=== PATIENT | female | born 1975 | race Caucasian/White ===

== ENCOUNTER 2016-12-19 09:31 | Emergency (ER) | payer BC, OTHER ==
[~2016-12-19] VITALS: Wt 65.9 kg
[2016-12-19] MEDS ORDERED: ONDANSETRON (ODT) 4 MG TAB ODT STA (10:22)
[2016-12-19] MEDS ORDERED: LORAZEPAM 1 MG TAB PO ONE (10:30)
[2016-12-19] MEDS ORDERED: LIDOCAINE/MYLANTA 40 ML BTL PO ONE (10:30)
[2016-12-19] MEDS ORDERED: OMEP20CA16 PO (11:15)
--- NOTE | 2016-12-19 12:04 | ERD ---
ER Documentation Chief Complaint Chief Complaint paulino, abd pain, n/v HPI Patient is a 41-year-old female with past medical history of gastritis presenting to the emergency department with complaints of midepigastric pain which began yesterday. Are intermittent. She additionally reports yesterday she received a call from a family member letting her know that her uncle has pancreatic cancer, which made her very anxious, causing her to have a large episode of nonbilious and nonbloody vomiting followed by dizziness and feeling of syncope. The patient did not fully syncopized. Today she has continued to feel intermittent dizziness. She also reports feeling anxious about her uncle. Symptoms are moderate in severity. She denies fevers, chills, diarrhea, or other symptoms at this time. ROS All systems reviewed and are negative except as per history of present illness. Medications Home Meds Active Scripts Omeprazole* (Omeprazole*) 20 Mg Capsule., 20 MG PO DAILY, #20 Prov:ESTRELLITA PACK PA-C 12/19/16 Allergies Allergies: Coded Allergies: No Known Drug Allergy (Verified Allergy, Unknown, 01/20/09) PMhx/Soc Medical and Surgical Hx: pt denies Medical Hx, pt denies Surgical Hx Hx Alcohol Use: No Hx Substance Use: No Hx Tobacco Use: No Smoking Status: Never smoker Physical Exam Vitals Vital Signs Date Time Temp Pulse Resp B/P Pulse Ox O2 Delivery O2 Flow Rate FiO2 12/19/16 09:37 98.7 70 20 132/78 100 Physical Exam Const: Nontoxic, well-appearing female in no acute distress. Head: Atraumatic Eyes: Normal Conjunctiva ENT: Normal External Ears, Nose and Mouth. Neck: Full range of motion..~ No meningismus. Resp: Clear to auscultation bilaterally Cardio: Regular rate and rhythm, no murmurs Abd: Soft, mild midepigastric tenderness palpation, no right upper quadrant tenderness, negative Beckman sign, no McBurney's point tenderness, non distended. Normal bowel sounds Skin: No petechiae or rashes Ext: No cyanosis, or edema Neur: Awake and alert Psych: Normal Mood and Affect Results 24 hrs Current Medications Medications (Trade) Dose Ordered Sig/Dwight Route PRN Reason Start Time Stop Time Status Last Admin Dose Admin Lorazepam (Ativan) 1 mg ONCE ONCE PO 12/19/16 10:30 12/19/16 10:31 DC 12/19/16 10:41 Miscellaneous Medication (Gi Cocktail (2)) 40 ml ONCE ONCE PO 12/19/16 10:30 12/19/16 10:31 DC 12/19/16 10:40 Ondansetron HCl (Zofran Odt) 4 mg ONCE STAT ODT 12/19/16 10:22 12/19/16 10:23 DC 12/19/16 10:41 Procedures/MDM This is a very pleasant 41-year-old female presenting to the emergency department with complaints of anxiety and midepigastric pain. The patient does have history of gastritis, and her current midepigastric pain is likely consistent with that. She was given a GI cocktail and Zofran in the department she was feeling significantly improved. I believe that the symptoms she experienced yesterday were likely related to the anxiety of discovering bad news about her uncle. The patient is treated in the department with Ativan and she is feeling significantly less anxious. On revisit, she is smiling, happy and much improved. She was stable for discharge with a prescription for omeprazole to control her midepigastric pain. If her symptoms of anxiety continue, she is to seek psychological evaluation and perhaps counseling. She did not mention any thoughts of suicidal or homicidal ideation. No evidence of life-threatening pathology at time of discharge. Pt/family in agreement with discharge plan/diagnosis. Pt/family advised to return immediately with any new or worsening symptoms. Follow-up with primary care physician within the next 1-2 days. Disclaimer: Inadvertent spelling and grammatical errors are likely due to EHR/ dictation software use and do not reflect on the overall quality of patient care. Also, please note that the electronic time recorded on this note does not necessarily reflect the actual time of the patient encounter. Departure Diagnosis: Primary Impression: Anxiety reaction Additional Impression: Epigastric pain Condition: Fair Patient Instructions: Your Body's Response to Anxiety, Gerd (Adult) Referrals: JEMIMA MIRANDA MD Additional Instructions: No mas mejor en 2-3 brady, regresar. Mas peor en 24 horas, regresear rapidamente. Ir a doctor primario en 1-2 brady. Usar instrucciones cuando uriel medicamento. ESTRELLITA PACK PA-C Dec 19, 2016 12:04
== END 2016-12-19 11:43 | disposition home or self-care (01) ==
LOC: FTE 09:31
DX: F41.9 Anxiety disorder, unspecified (principal)
CPT/HCPCS: Z7502; Z7610; 99283

== ENCOUNTER 2017-03-14 08:23 | Emergency (ER) | END 2017-03-14 12:01 | disposition home or self-care (01) ==